=== PATIENT | female | born 1990 | race Caucasian/White ===

== ENCOUNTER → 2019-03-21 | Outpatient (CLI) | payer OTHER, SELFPAY ==
[2019-03-21 13:33] VITALS: BMI 35.0
[2019-03-21 15:14] LABS: Absolute Lymphocyte Count 1.85 X10^3/ul (0.83-4.51); Absolute Neutrophil Count 5.7 X10^3/uL (2.0-7.7); Basophil# 0.03 X10^3/uL; Basophil% 0.4 % (0-1); Eosinophil# 0.13 X10^3/uL; Eosinophils% 1.5 % (0-5); Hematocrit 38.6 % (37-47); Hemoglobin 12.9 g/dl (12.0-15.0); Lymphocyte # 1.85 X10^3/ul (4.0); Lymphocyte % 21.9 % (19-41); Mean Corp Hgb Conc 33.4 g/gl (32-36); Mean Corpuscular Volume 92.8 fL (81-99); Mean Platelet Vol. 10.1 fl (6.2-12.0); Monocyte# 0.58 X10^3/uL; Monocyte% 6.9 % (0-10); Neutrophil # 5.71 X10^3/uL (2.7-7.7); Neutrophil % 67.6 % (47-70); Platelet Count 162 K/mm3 (150-450); RBC Distribution Width CV 13.3 % (11.6-14.6); Red Blood Count 4.16 M/mm3 (4.2-5.4); White Blood Count 8.4 K/mm3 (4.4-11.0)
[2019-03-21 15:19] LABS: POSITIVE COUNT NO; POSITIVE DIFFERENTIAL NO; POSITIVE MORPHOLOGY NO
[2019-03-21 15:30] LABS: Glucose Challenge Gest 1H 50g 93 mg/dL (70-140)
[2019-03-21 16:22] LABS: HIV - WCH Non-Reactive (Nonreactive); Rubella IgG 67.7 IU/mL
[2019-03-21 19:27] LABS: Chlamydia Trachomatis by PCR Negative (Negative); Neisserai gonorrhoeae by PCR Negative (Negative); Probe Check PASS; Sample Adequacy Control PASS; Specimen Processing Control PASS
[2019-03-23 15:28] LABS: HEPATITIS B SURFACE AG Negative (Negative)
[2019-03-24 03:40] LABS: Rapid Plasmin Reagin (RPR) NONREACTIVE (NONREACTIVE)
[2019-03-24 13:57] LABS: HPV APTIMA, High Risk Negative (Negative)
== END | disposition home or self-care (01) ==
PROVIDERS: Visit Provider Obstetrics & Gynecology
DX: Z34.90 Encounter for supervision of normal pregnancy, unspecified, unspecified trimester (principal); Z12.4 Encounter for screening for malignant neoplasm of cervix
CPT/HCPCS: 82950; 85025; 86592; 86703; 86762; 86850; 86900; 87086; 87340; 87491; 87591; 87624; 88175; G0145

== ENCOUNTER → 2019-07-21 08:43 | Outpatient (CLI) | payer OTHER, SELFPAY ==
[2019-07-21 08:24] VITALS: BMI 35.0
[2019-07-21 09:48] LABS: Absolute Lymphocyte Count 1.38 X10^3/uL (0.83-4.51); Absolute Neutrophil Count 4.7 X10^3/uL (2.0-7.7); Basophil# 0.05 X10^3/uL; Basophil% 0.7 % (0-1); Eosinophil# 0.11 X10^3/uL; Eosinophils% 1.6 % (0-5); Hematocrit 34.6 % (37-47); Hemoglobin 11.6 g/dL (12.0-15.0); Lymphocyte # 1.38 X10^3/ul (4.0); Lymphocyte % 19.8 % (19-41); Mean Corp Hgb Conc 33.5 g/dL (32-36); Mean Corpuscular Hgb 33.1 pg (27.0-32.0); Mean Corpuscular Volume 98.9 fL (81-99); Mean Platelet Vol. 10.4 fl (6.2-12.0); Monocyte# 0.48 X10^3/uL; Monocyte% 6.9 % (0-10); NRBC Flagged by Analyzer 0 % (0-5); Neutrophil # 4.69 X10^3/uL (2.7-7.7); Neutrophil % 67.3 % (47-70); Platelet Count 131 K/mm3 (150-450); RBC Distribution Width CV 13.2 % (11.6-14.6); RBC Distribution Width SD 47.4 fl (35.1-43.9)
[2019-07-21 09:59] LABS: Glucose Challenge Gest 1H 50g 82 mg/dL (70-140)
== END ==
LOC: PAVLAB 08:51
PROVIDERS: Family Provider Family Medicine; PCP Family Medicine; Referring Provider Obstetrics & Gynecology; Visit Provider Obstetrics & Gynecology
DX: Z34.90 Encounter for supervision of normal pregnancy, unspecified, unspecified trimester (principal); Z3A.26 26 weeks gestation of pregnancy
CPT/HCPCS: 36415; 82950; 85025

== ENCOUNTER → 2019-09-27 10:00 | Outpatient (CLI) | payer BC, SELFPAY ==
[2019-09-27 09:07] VITALS: BMI 35.0
== END ==
PROVIDERS: Family Provider Family Medicine; PCP Family Medicine; Referring Provider Nurse Practitioner Women's Health; Visit Provider Nurse Practitioner Women's Health
DX: Z34.81 Encounter for supervision of other normal pregnancy, first trimester (principal)
CPT/HCPCS: 87081

== ENCOUNTER → 2019-10-04 09:25 | Outpatient (CLI) | payer BC, SELFPAY ==
[2019-10-04 08:46] VITALS: BMI 35.0
[2019-10-04 09:43] LABS: Absolute Neutrophil Count 7.6 X10^3/uL (2.0-7.7); Basophil# 0.12 X10^3/uL; Basophil% 1.1 % (0-1); Eosinophil# 0.15 X10^3/uL; Eosinophils% 1.4 % (0-5); Hematocrit 36.2 % (37-47); Hemoglobin 12.1 g/dL (12.0-15.0); Lymphocyte % 15.7 % (19-41); Mean Corp Hgb Conc 33.4 g/dL (32-36); Mean Corpuscular Hgb 32.6 pg (27.0-32.0); Mean Corpuscular Volume 97.6 fL (81-99); Mean Platelet Vol. 10.8 fl (6.2-12.0); Monocyte# 0.82 X10^3/uL; Monocyte% 7.6 % (0-10); NRBC Flagged by Analyzer 0 % (0-5); Neutrophil # 7.56 X10^3/uL (2.7-7.7); Neutrophil % 69.7 % (47-70); Platelet Count 136 K/mm3 (150-450); RBC Distribution Width CV 13.4 % (11.6-14.6); RBC Distribution Width SD 47.8 fl (35.1-43.9); Red Blood Count 3.71 M/mm3 (4.2-5.4); White Blood Count 10.8 K/mm3 (4.4-11.0)
== END ==
PROVIDERS: Referring Provider Obstetrics & Gynecology; Visit Provider Obstetrics & Gynecology
DX: O99.119 Other diseases of the blood and blood-forming organs and certain disorders involving the immune mechanism complicating pregnancy, unspecified trimester (principal); D69.6 Thrombocytopenia, unspecified; Z3A.00 Weeks of gestation of pregnancy not specified
CPT/HCPCS: 36415; 85025

== ENCOUNTER 2019-10-21 01:22 | Inpatient (IN) | payer BC, SELFPAY ==
[2019-10-19 08:43] VITALS: BMI 35.0
[2019-10-21] MEDS: Lactated Ringers 1,000 ML 50 ML IV (01:35)
[2019-10-21 01:43] VITALS: BMI 37.5
[2019-10-21 01:53] LABS: Absolute Lymphocyte Count 1.81 X10^3/uL (0.83-4.51); Basophil# 0.06 X10^3/uL; Basophil% 0.5 % (0-1); Eosinophil# 0.16 X10^3/uL; Eosinophils% 1.4 % (0-5); Hematocrit 34.2 % (37-47); Hemoglobin 11.9 g/dL (12.0-15.0); Lymphocyte # 1.81 X10^3/ul (4.0); Lymphocyte % 15.9 % (19-41); Mean Corp Hgb Conc 34.8 g/dL (32-36); Mean Corpuscular Hgb 33.1 pg (27.0-32.0); Mean Corpuscular Volume 95.3 fL (81-99); Mean Platelet Vol. 11.2 fl (6.2-12.0); Monocyte# 0.95 X10^3/uL; Monocyte% 8.3 % (0-10); NRBC Flagged by Analyzer 0 % (0-5); Neutrophil # 8.01 X10^3/uL (2.7-7.7); Neutrophil % 70.4 % (47-70); Platelet Count 113 K/mm3 (150-450); RBC Distribution Width CV 13.2 % (11.6-14.6); RBC Distribution Width SD 46.3 fl (35.1-43.9); Red Blood Count 3.59 M/mm3 (4.2-5.4); White Blood Count 11.4 K/mm3 (4.4-11.0)
[2019-10-21] MEDS: 0.9% Saline Lock 10 ML Syringe IV ×2 (02:10→04:47)
[2019-10-21] MEDS: Ondansetron 4 MG/2 ML Vial IV (02:10)
[2019-10-21] MEDS: Oxytocin 30 units/NS 500 ml 30 UNITS/500 ML IV.SOLN 999 UNITS IV (02:22)
--- NOTE | 2019-10-21 03:16 | PCM.HP.OB ---
- Problem List (1) Active labor at term Status: Acute (2) Thrombocytopenia affecting Status: Acute (3) Anxiety Status: Acute Comment: declines med. counseling encouraged. lost father(cancer 04/2019) this and 2 of his brothers 09/2018 and now 09/2019. Will now start celexa 09/27/19 (4) Obesity affecting Status: Acute Qualifiers: Trimester: second trimester Qualified Code(s): O99.212 - Obesity complicating , second trimester Comment: 1 tm glucola nl, encouraged healthy weight gain in (5) History of delivery Status: Acute Comment: previous x 1, plan (6) Status: Acute Qualifiers: Weeks of gestation: 39 weeks Qualified Code(s): Z3A.39 - 39 weeks gestation of Comment: genetic, carrier, and NTD screening declined. MFM Anatomy US normal. (7) Supervision of normal Status: Acute Qualifiers: Normal : other normal Trimester: first trimester Qualified Code(s): Z34.81 - Encounter for supervision of other normal , first trimester Comment: PRR DWIGHT 10/21/19 gender surprise Liane Germain Bebeto History Date of Admission: 10/21/19 Final DWIGHT: 10/21/19 Gestational age: 40 Weeks and 0 Days History of this : This is a 29 year-old, , at 40 weeks gestational age presents at 40 weeks with regular contractions and spontaneous rupture membranes for clear fluid. Patient is 8 cm dilated and denies any significant vaginal bleeding and admits good movement.. Surgical History: Surgical History (Last Reviewed 10/19/19 @ 08:43 by Shantelle Hamilton) delivery delivered O82 Allergies No Known Allergies Allergy (Verified 10/21/19 01:45) Home Medications: Home Medications loratadine 10 mg tablet 10 mg PO DAILY 03/21/19 vitamin#30 30 mg iron-10 mg iron-folic acid 1 mg-omg3 capsule 1 cap PO DAILY cap 03/21/19 Smoking Status: Former smoker Alcohol: None Number of Fetus(es): 1 NST - FHR Rate Baby A Baseline: 130 Variability:: Moderate Accelerations:: 15 x 15 Decelerations:: None NST Reactive:: Yes FHR Category:: Category I Uterine Activity:: q 2-3 History Past Pregnancies: Past PregnanciesPregancy History 3 Elective abortions Hx Para 2 Spontaneous abortions Hx # Term Pregnancies Ectopic pregnancies Hx # Pregnancies Multiple births # of living children Past Pregnancies Del. Date Name GA/Weeks Outcome Route Bth Weight Infant Gen Labor Lgth Anesthesia Del Locatn Provider FOB Unknown 2006 [place] live - full term [id number] Female [place] Unknown 2011 [place] live - full term 8 lb 11 ounces Male Mason Bond Labs: Mom's Labs & Results 10/21/19 10/21/19 01:35 01:35 WBC 11.4 H RBC 3.59 L Hgb 11.9 L Hct 34.2 L MCV 95.3 MCH 33.1 H MCHC 34.8 RDW Std Deviation 46.3 H RDW Coeff of Michelle 13.2 Plt Count 113 L MPV 11.2 Immature Gran % (Auto) 3.500 H Neut % (Auto) 70.4 H Lymph % (Auto) 15.9 L [place] % (Auto) 8.3 Eos % (Auto) 1.4 Baso % (Auto) 0.5 Absolute Neuts (auto) 8.0 H Absolute Lymphs (auto) 1.81 Nucleated RBC % 0 Blood Type O POSITIVE Antibody Screen NEGATIVE Course Did the patient receive Yes care? Labs Blood Type: O RH: POSITIVE Rubella status Immune HbSAg Negative Date Done: 03/21/19 Chlamydia Negative Gonorrhea Negative HIV/AIDS Non-Reactive Group B Strep: Negative Current Obstetrical History Gestational Diabetes No Incompetent Cervix No Infertility No IUGR No Macrosomia No Hypertension/Pre-eclampsia No Placenta Previa/Abruption No PTL/PROM No Uterine anomaly No Oligohydramnios No Polyhydramnios No Multiple gestation No Past Medical History Asthma No Diabetes No Hypertension No Heart disease No Mitral valve prolapse No Neurologic/Seizure disorder/ No Migraines Kidney disease No Liver disease No Varicosities No Clotting disorders/Hx of DVT No Thyroid Dysfunction No Other medical diseases No Psychiatric disorders No Major trauma No Abnormal PAP smear No Sleep apnea No Mammogram in the last 2 years No Social History Marital Status: SINGLE Alleged father TAMMIE Hx Smoking Yes Smoking Status Former smoker How long have you used n/a substances (years)? Expected Infant Delivery Method: Spontaneous Vaginal Review of Systems Constitutional: Denies: Fever, Malaise Eyes: Denies: Blurred vision, Vision Change HEENT: Denies: Head Aches, Visual Changes Cardiovascular: Denies: Chest Pain, Palpitations Respiratory: Denies: Cough, Shortness of Breath, Wheezing Gastrointestinal: Denies: Abdominal Pain, Diarrhea, Nausea, Vomiting Genitourinary: Denies: Dysuria, Hematuria Musculoskeletal: Denies: Joint Pain, Muscle pain Skin: Denies: Lesions, Rash Neurological: Denies: Blurred vision, Focal weakness, Headaches Psychiatric: Denies: Anxiety, Depression Endocrine: Denies: Heat/ Cold Intolerance Hematologic/ Lymphatic: Denies: Easy Bruising, Easy Bleeding Physical Exam General: Alert, Cooperative, No apparent distress HEENT: Atraumatic, Normocephalic. Negative for: Thyromegaly, Lymphadenopathy Cardiovascular: Regular rate Lungs: Normal air movement Abdomen: Soft, Non Tender, Gravid Neurological: Deep Tendon Reflexes 2+/4 and Symmetrical, Neuro grossly intact. Negative for: Clonus HOOP EXPANDER: Normal external genitalia. Negative for: Vulvar lesions Estimated gestational size: Appropriate for gestational size Presentation: Cephalic Cervix Dilation (cm): 8 Assessment/Plan All Active Problems (Last Reviewed 10/19/19 @ 08:43 by Shantelle Hamilton) Active labor at term (Acute) Thrombocytopenia affecting (Acute) Anxiety (Acute) Obesity affecting (Acute) History of delivery (Acute) (Acute) Supervision of normal (Acute) This is a 29 year-old, , at 40 weeks gestational age presents for TOLAC prefers minimal intervention gbs neg TOLAC
--- NOTE | 2019-10-21 03:26 | PCM.OPRPT ---
Problem List (1) Active labor at term Status: Acute (2) Thrombocytopenia affecting Status: Acute (3) Anxiety Status: Acute Comment: declines med. counseling encouraged. lost father(cancer 04/2019) this and 2 of his brothers 09/2018 and now 09/2019. Will now start celexa 09/27/19 (4) Obesity affecting Status: Acute Qualifiers: Trimester: second trimester Qualified Code(s): O99.212 - Obesity complicating , second trimester Comment: 1 tm glucola nl, encouraged healthy weight gain in (5) History of delivery Status: Acute Comment: previous x 1, plan (6) Status: Acute Qualifiers: Weeks of gestation: 39 weeks Qualified Code(s): Z3A.39 - 39 weeks gestation of Comment: genetic, carrier, and NTD screening declined. MFM Anatomy US normal. (7) Supervision of normal Status: Acute Qualifiers: Normal : other normal Trimester: first trimester Qualified Code(s): Z34.81 - Encounter for supervision of other normal , first trimester Comment: PRR DWIGHT 10/21/19 gender surprise Liane Germain Bebeto Vaginal Delivery Maternal Presentation: Active Labor tolac Amniotic Membrane Rupture Type: Spontaneous at home Amniotic Fluid Description: Clear Final DWIGHT: 10/21/19 Gestational age: 40 Weeks and 0 Days Date of Procedure: 10/21/19 Pre-Operative Diagnosis: tolac Post-Operative Diagnosis: same Surgery/ Procedure Performed: Spontaneous Vaginal Delivery, - - Type of Anesthesia: None Description of Procedure: Patient began pushing and delivered the head in the YOUNG presentation. The head was delivered atraumatically . The anterior and posterior shoulders delivered without complication followed by the rest of the infant and the infant was placed on the maternal abdomen. Delayed cord clamping was employed for approximately 60 seconds. Cord was clamped and cut and gentle traction was applied to the cord and the placenta delivered spontaneously immediately following it was noted to be intact with three-vessel cord. The perineum and vagina were inspected and noted to have no laceration. EBL was 300 cc. Patient and infant tolerated delivery well. Presentation: YOUNG Placental Delivery Description: Spontaneous Placenta Disposition: [facility] Cord Vessel Description: 3 Vessels Cord Entanglement: None Estimated Blood Loss: 300 A gender: Male Episiotomy Description: None Laceration: None Medications given after delivery: IV Pitocin Complications: None
--- NOTE | 2019-10-21 03:40 | DCINST_ITS ---
Discharge Diet: No Restrictions Discharge Activity: Return to Normal Activity, May not drive while taking narcotic pain medications., May Shower May resume sexual activity in: 4-6 weeks Call your doctor if your incision/area has: Continuous Slow Oozing, Sudden Increased Bleeding, Increased Pain/ Swelling, Increased Redness, Foul Smelling Discharge Additional Instructions: If you experience any of the following, contact your healthcare provider. * Bleeding that soaks a pad every hour for 2 hours * Fever 100.4 or higher * Unrelieved incision or abdominal pain * Swelling, redness, discharge or bleeding from your incision or episiotomy site * Your incision begins to separate * Problems urinating (including inability to urinate or burning while urinating). * Visual changes * Severe headache * Flu-like symptoms * Pain or redness in one of both of your breasts * Pain, warmth, tenderness or swelling in your legs, especially the calf area * Frequent nausea and vomiting * Symptoms of depression or anxiety If you experience any of the following, call 911 or go to the nearest Emergency Room. * Chest pain * Problems breathing * Seizure activity * Partial or complete paralysis of a body part, slurred speech, weakness or drooping of the face, or a sudden inability to walk or hold your balance Allergies/Adverse Reactions: Allergies No Known Allergies Allergy (Verified 10/21/19 01:45) Medications to take at Discharge loratadine 10 mg tablet 10 mg PO DAILY 03/21/19 vitamin#30 30 mg iron-10 mg iron-folic acid 1 mg-omg3 capsule 1 cap PO DAILY cap 03/21/19 Please Follow Up With: Dipika Johnson MD - [phone] When: Call to make an appointment with your doctor in 6 weeks. If you had elevated Blood pressure or 4th degree laceration you will need to be seen in 2 weeks. Primary Care Physician: Care Physician,No Primary [Primary Care Provider] - Test Results: Test results from this visit will be discussed in further detail at your follow- up appointment, if applicable.
--- NOTE | 2019-10-21 03:40 | PCM.DCVAG ---
Discharge Diet: No Restrictions Discharge Activity: Return to Normal Activity, May not drive while taking narcotic pain medications., May Shower May resume sexual activity in: 4-6 weeks Call your doctor if your incision/area has: Continuous Slow Oozing, Sudden Increased Bleeding, Increased Pain/ Swelling, Increased Redness, Foul Smelling Discharge Additional Instructions: If you experience any of the following, contact your healthcare provider. Bleeding that soaks a pad every hour for 2 hours Fever 100.4 or higher Unrelieved incision or abdominal pain Swelling, redness, discharge or bleeding from your incision or episiotomy site Your incision begins to separate Problems urinating (including inability to urinate or burning while urinating). Visual changes Severe headache Flu-like symptoms Pain or redness in one of both of your breasts Pain, warmth, tenderness or swelling in your legs, especially the calf area Frequent nausea and vomiting Symptoms of depression or anxiety If you experience any of the following, call 911 or go to the nearest Emergency Room. Chest pain Problems breathing Seizure activity Partial or complete paralysis of a body part, slurred speech, weakness or drooping of the face, or a sudden inability to walk or hold your balance Allergies/Adverse Reactions: Allergies No Known Allergies Allergy (Verified 10/21/19 01:45) Medications to take at Discharge loratadine 10 mg tablet 10 mg PO DAILY 03/21/19 vitamin#30 30 mg iron-10 mg iron-folic acid 1 mg-omg3 capsule 1 cap PO DAILY cap 03/21/19 Please Follow Up With: Dipika Johnson MD - [phone] When: Call to make an appointment with your doctor in 6 weeks. If you had elevated Blood pressure or 4th degree laceration you will need to be seen in 2 weeks. Primary Care Physician: Care Physician,No Primary [Primary Care Provider] - Test Results: Test results from this visit will be discussed in further detail at your follow-up appointment, if applicable.
[2019-10-21 04:23] VITALS: BP 126/80; PULSE 74; RESP 16; TEMP 36.6
[2019-10-21 08:30] VITALS: BP 119/63; PULSE 74; RESP 15; TEMP 36.8
[2019-10-21 13:15] VITALS: BP 132/62; PULSE 85; RESP 16; TEMP 36.9
[2019-10-21] MEDS: Loratadine 10 MG Tablet PO (13:19)
[2019-10-21] MEDS: Prenatal Vits Tablet 1 TABLET PO (13:20)
[2019-10-21 17:20] VITALS: BP 114/58; PULSE 70; RESP 16; TEMP 36.6
[2019-10-21 19:40] VITALS: BP 131/72; PULSE 71; RESP 16; TEMP 36.8
[2019-10-21 23:55] VITALS: BP 110/70; PULSE 74; RESP 18; TEMP 36.7
[2019-10-22 06:00] VITALS: BP 118/61; PULSE 77; RESP 16; TEMP 36.6
[2019-10-22 08:00] VITALS: BP 117/55; PULSE 62; RESP 18; TEMP 36.8
[2019-10-22] MEDS: Loratadine 10 MG Tablet PO (09:46)
--- NOTE | 2019-10-22 12:01 | PN.OBGYN_ITS ---
Subjective: doing well no complaints pain controlled no CP SOB N V ambulating well tolerating po lochia moderate, going well - Physical Exam Vitals/I&O's: Vital Signs Temp Pulse Resp BP 98.2 F 62 18 117/55 L 10/22/19 08:00 10/22/19 08:00 10/22/19 08:00 10/22/19 08:00 Oxygen Delivery Method Room Air Weight: 254 lb Body Mass Index (BMI) 37.5 Intake and Output for Last 24 Hours 10/20/19 10/21/19 10/22/19 23:59 23:59 23:59 Intake Total 775.00 / 775.00 Output Total 500 / 500 Balance 275.00 / 275.00 General: Alert, Oriented x3 Current Medications Acetaminophen (Tylenol) 1,000 mg PO Q8H PRN PRN PRN Reason: Pain Score 1-3/10 Bisacodyl (Dulcolax) 10 mg RECTAL UD PRN PRN Reason: If no BM Dibucaine (Dibucaine) 1 applic TOPICAL TID PRN PRN; Protocol PRN Reason: Discomfort Hydrocortisone (Hytone) 1 applic TOPICAL TID PRN PRN; Protocol PRN Reason: Discomfort Loratadine (Claritin) 10 mg PO DAILY [facility] Last Admin: 10/22/19 09:46 Dose: 10 mg Documented by: Methylergonovine Maleate (Methergine) 0.2 mg IM X1 PRN PRN Reason: Excess bleeding/uterine atony Naproxen (Naprosyn) 500 mg PO Q8H PRN PRN PRN Reason: Pain Score 1-3/10 Ondansetron HCl (Zofran) 4 mg IV Q4H PRN PRN PRN Reason: Nausea Oxycodone HCl (Oxyir) 5 - 10 mg PO Q4H PRN PRN PRN Reason: Pain Score 4-10/10 Multivit/Folic Acid/Iron (Prenatabs Fa) 1 tablet PO DAILY@1200 [facility] Last Admin: 10/21/19 13:20 Dose: 1 tablet Documented by: Senna/Docusate Sodium (Senokot-S, Leonor-Colace) 1 - 2 tablet PO DAILY PRN PRN PRN Reason: Constipation Simethicone (Mylicon) 80 mg PO P[facility]S PRN PRN Reason: Indigestion/Stomach pain Sodium Chloride () 5 - 15 ml IV UD PRN PRN Reason: SALINE FLUSH Last Admin: 10/21/19 04:47 Dose: 10 ml Documented by: Medical Necessity - Tobacco Use Smoking Status: Former smoker Assessment/Plan All Active Problems (Last Reviewed 10/19/19 @ 08:43 by Shantelle Hamilton) Contraception management (Acute) Anxiety (Acute) Active labor at term (Resolved) History of delivery (Resolved) Obesity affecting (Resolved) (Resolved) Supervision of normal (Resolved) Thrombocytopenia affecting (Resolved) s/p PPD # 1 1. routine post delivery care 2. breast feeding- support given 3. rh positive 4. rubella immune
[2019-10-22 12:48] VITALS: BP 119/68; PULSE 72; RESP 16; TEMP 36.4
== END 2019-10-22 13:10 | disposition home or self-care (01) | DRG 806 ==
PROVIDERS: Admitting Provider Obstetrics & Gynecology; Referring Provider Obstetrics & Gynecology; Visit Provider Obstetrics & Gynecology
DX: O34.219 Maternal care for unspecified type scar from previous cesarean delivery (principal); O99.12 Other diseases of the blood and blood-forming organs and certain disorders involving the immune mechanism complicating childbirth; D69.6 Thrombocytopenia, unspecified; O99.214 Obesity complicating childbirth; E66.9 Obesity, unspecified; Z87.891 Personal history of nicotine dependence; Z3A.40 40 weeks gestation of pregnancy; Z37.0 Single live birth
CPT/HCPCS: 59025; 59050; 85025; 86850; 86900; 86901; 99218; J7120; A4216; G0378; J2405

== ENCOUNTER → 2020-01-16 14:18 | Outpatient (CLI) | payer BC, SELFPAY ==
[2020-01-15 10:54] VITALS: BMI 37.5
--- NOTE | 2020-01-16 14:19 | US_ITS ---
STUDY: ULTRASOUND BREAST - RIGHT REASON FOR EXAM: Female, 29 years old. Palpable lump in the right breast. TECHNIQUE: Axial and longitudinal images of the RIGHT breast were performed with a high resolution ultrasound transducer. # OF IMAGES: 8 COMPARISON: Comparison is made with prior mammogram done earlier today. FINDINGS: RIGHT Breast: There is a 5 mm x 4 mm x 4 mm slightly echogenic nodule at the 4:00 position in the breast at 6 cm from nipple. This most likely represents a small lipoma. US/Breast Limited Unilateral IMPRESSION: 5 mm x 4 mm x 4 mm echogenic nodule at the 4:00 position of the breast at 6 cm from the nipple. This most likely represents a lipoma. Routine annual mammographic follow-up is recommended. ASSESSMENT CATEGORY: BIRADS Category 2: Benign. A letter regarding these results will be sent to the patient by the facility within 30 days. Electronically Signed: Rocky Brandon, at 9:08 EST , Service support ,
--- NOTE | 2020-01-16 14:19 | BI_ITS ---
MAMMOGRAPHY - BILATERAL DIAGNOSTIC REASON FOR EXAM: Female, 29 years old. Right breast lump. Patient quit breast-feeding one month ago. PERTINENT HISTORY: Non-contributory. TECHNIQUE: Digital bilateral breast alexa (3D mammographic acquisition) in the CC and MLO projections. 2-D mediolateral oblique (MLO) and craniocaudad (CC) views of both breasts were obtained. CAD: Full Field Digital Mammography with Computer Added Detection was performed. COMPARISON: None. Baseline examination. FINDINGS: Breast Composition: The breasts are heterogeneously dense, which may obscure small masses. There are no dominant masses or suspicious calcifications. No other significant abnormalities are identified. BI/DIAG MAMM W/CAD, BILAT IMPRESSION: Negative diagnostic mammogram. With the patient''s history of a palpable lump in the right breast, correlation with ultrasound is recommended. ASSESSMENT CATEGORY: BIRADS Category 0: Incomplete. Need additional imaging evaluation. A letter regarding these results will be sent to the patient by the facility within 30 days. Approximately 10% of breast cancers are not detected by mammography. A normal mammogram should not delay biopsy of a clinically suspicious abnormality. Electronically Signed: Rocky Brandon, at 15:21 EST , Service support ,
== END ==
LOC: OPBI 14:19
PROVIDERS: Referring Provider Obstetrics & Gynecology; Visit Provider Obstetrics & Gynecology
DX: N63.14 Unspecified lump in the right breast, lower inner quadrant (principal)
CPT/HCPCS: 76642; 77062; 77066; G0279

== ENCOUNTER → 2020-05-21 | Outpatient (CLI) | payer BC, SELFPAY ==
[2020-01-15 10:54] VITALS: BMI 37.5
== END | disposition home or self-care (01) ==
LOC: LABSPEC 05-22 07:37
PROVIDERS: Visit Provider Family Medicine Hospice and Palliative Medicine
DX: Z11.59 Encounter for screening for other viral diseases (principal)
CPT/HCPCS: 87635; G2023; U0003

== ENCOUNTER → 2025-08-20 | Outpatient (CLI) | payer OTHER, SELFPAY ==
[2025-08-23 16:09] LABS: HPV APTIMA, High Risk Negative (Negative)
== END | disposition home or self-care (01) ==
LOC: LABSPEC 16:02
PROVIDERS: Referring Provider Nurse Practitioner Family; Visit Provider Nurse Practitioner Family
DX: Z12.4 Encounter for screening for malignant neoplasm of cervix (principal)
CPT/HCPCS: 87624; 88175; G0145

== ENCOUNTER → 2025-08-31 | Outpatient (CLI) | payer OTHER, SELFPAY ==
--- NOTE | 2025-08-31 15:00 | BI_ITS ---
EXAM: SCRN MAMM (CAD)W/NIKKI BILAT DATE: 08/31/2025 CLINICAL HISTORY: F, Age 35 y/o , SCREENING; PREVIOUS LIPOMA TECHNIQUE: Procedure Code: [id number] Modality: MG Procedure: SCRN MAMM (CAD)W/NIKKI BILAT COMPARISON: Prior exam(s) dated 01/16/2020. FINDINGS: TISSUE DENSITY: There are scattered areas of fibroglandular density. Bilateral Breast Mammographic Findings: No significant masses, calcifications or other abnormalities are identified. Benign-appearing round calcifications are seen in both breasts. BI/SCRN MAMM (CAD)W/NIKKI BILAT IMPRESSION: Benign screening mammogram. OVERALL FINAL ASSESSMENT BI-RADS 2: BENIGN RECOMMENDATION: Routine annual follow-up in 1 Year Additional Recommendation none A letter with findings and recommendations will be mailed to the patient. Reading Location: [id number]
--- OUTSIDE RECORDS SUMMARY | 2025-08-31 15:18 | XMS RPT_ITS | CCD ---
Author Organization [facility] Inform ion Partnership TOUR AGENT [facility] Care Team Providers Care Windows Vmware Administrator Name Role Phone Unavailable Primary Care Provider Unavailabl e Care Physician, No Primary Primary Care Physicia n Unavailable Care Physician, No Primary Referring Provider Un available Lianna LABOR CONTRACT ANALYST-C, Renea Attending Physician [phone] Lianna LABOR CONTRACT ANALYST-CRenea Referring Provider [phone] Care Physician, No Primary Primary Care Unava ilable Care Physician, No Primary Referring Unava ilable Renea Dsouza Attending Unavailable Care Physician, No Primary Primary Care Unava ilable Renea Dsouza Attending Unavailable Renea Dsouza Referring Unavailable Care Physician, No Primary Primary Care Unava ilable Renea Dsouza Attending Unavailable Renea Dsouza Referring Unavailable Allergies Allergy Classification Reported Allergen(s) Allergy Type Date of Onset Reaction(s) Facility (1 source) Seasonal allergy; Translations: [SEASONAL ALLERGIES] Propensity to adverse reactions (disorder) 2 [facility] Repository (2 sources) Adhesive Tape; Translations: [adhesive tape] Propensity to adverse reactions 5 [facility] Medications Current Medications Medication Drug Class(es) Dates Sig (Normalized) Sig (Original) cholecalciferol 0.05 mg oral capsule (1 source) Vitamin D Start: 12-24-2020 take 1 capsule by mouth once daily erythromycin 0.005 mg/mg ophthalmic ointment (1 source) Macrolide, Macrolide Antimicrobial Start: 05-23-2023 End: 05-30-2023 erythromycin (ROMYCIN) 5 mg/gram (0.5 %) ophthalmic ointment Use 1 application in the left eye three times daily for 7 days. 1 g 0 05/23/2023 05/30/2023 Active Comment on above: Use 1 application in the left eye three times daily for 7 days. levonorgestrel 0.060955 mg/hr intrauterine system (2 sources) Progestin, Progestin-containin g Intrauterine Device Start: 01-08-2020 Mirena active En counter Date: 04/28/2024 MedicationName: 'Mirena'; ConceptType: 'NDC'; Status: 'Taking'; Not Available Not Available Not Available Pnv [id number]-Dbqmi Acid-Sutton -3 30 mg iron-10 mg iron-1 mg capsule (1 source) Start: 03-21-2019 Zinc (1 source) Start: 12-24-2020 take 1 tablet by seun th once daily Completed/Discontinued Medications Medication Drug Class(es) Dates Sig (Normalized) Sig (Original) loratadine 10 mg oral tablet (3 sources) Start: 03-21-2019 loratadine (CLARITIN) 10 mg tablet Take 10 mg by mouth. 0 03/21/2019 Active take 1 tablet by mouth once karen y Claritin 1 tablet Once a day , Orally active Encounter Date: 04/28/2024 MedicationID: '[id number]'; MedicationName: 'Claritin'; ConceptType: 'NDC'; Status: 'Taking'; Not Available Not Available Not Available Comment on above: Take 10 mg by mouth. Problems Active Problems Problem Classification Problem Date Documented Date Episodic/Chronic Anxiety disorders (1 source) Anxiety; Translations: [Anxiety disorder, unspecified] 09-27-2019 Chronic Comment on above: declines med. counse shereen encouraged. lost father(cancer 04/2019) this and 2 of his brothers 09/2018 and now 09/2019. Will now start celexa 09/27/19 Contraceptive and procreative management (4 sources) Patient encounter status; Translations: [Encounter for contraceptive management, unspecified] Onset: 08-20-2025 11-30-2019 Episodic Comment on above: cordell 11/30/19 Other complications of (1 source) Maternal obesity complicating , childbirth and the puerperium, antepartum; Translations: [Obesity complicating , unspecified trimester] 10-23-2019 Chronic Comment on above: 1 tm glucola nl, enc ouraged healthy weight gain in Other complications of (1 source) Thrombocytopenic disorder; Translations: [Other diseases of the blood and blood-forming organs and certain disorders involving the immune mechanism complicating , unspecified trimester] 10-23-2019 Episodic Other and delivery including normal (3 sources) Normal ; Translations: [Encounter for supervision of normal , unspecified, unspecified trimester] 10-23-2019 Episodic Comment on above: PRR DWIGHT 10/21/19 gender surprise PC Liane Riggs Bebeto velasquez, carrier, an d NTD screening declined. MFM Anatomy US normal. Other screening for suspected conditions (not mental disorders or infectious disease) (5 sources) Encounter for screening mammogram for malignant neoplasm of breast; Translations: [Encounter for other screening for malignant neoplasm of breast] Onset: 08-20-2025 Episodic Superficial injury; contusion (1 source) Abrasion of left cornea; Translations: [Injury of conjunctiva and corneal abrasion without foreign body, left eye, initial encounter] 05-23-2023 Episodic Past or Other Problems Problem Classification Problem Date Documented Date Episodic/Chronic Immunizations and screening for infectious disease (1 source) HIV screening; Translations: [Encounter for screening for human immunodeficiency virus [HIV]] Onset: 04-06-2025 Resolved: 04-06-2025 Episodic Results Test Name Value Interpretation Reference Range Facility PAP IG HPV APTIMA 16/18,45on 08-23-2025 ADEQ Comment Normal . [facility] Comment on above: Order Comment: Speci men Comment: [id number] Specimen Comment: No. of containers..01 ThinPrep Vial Result Comment: Sati sfactory for evaluation. Endocervical and/or squamous metaplastic cells (endocervical component) are present. Performed By: #### L 7400.0280 #### [facility] [address] [place], [place], [id number] COMM . Normal . [facility] Comment on above: Order Comment: Speci men Comment: [id number] Specimen Comment: No. of containers..01 ThinPrep Vial Performed By: #### L 7400.0280 #### [facility] [address] [place], [place], [id number] COMMENT Comment Normal . [facility] Comment on above: Order Comment: Speci men Comment: [id number] Specimen Comment: No. of containers..01 ThinPrep Vial Result Comment: This liquid based ThinPrep(R) pap test was interpreted using the [employer](R) Genius(TM) Cervical Algorithm whole slide imaging system. Performed By: #### L 7400.0280 #### [facility] [address] [place], [place], [id number] DIAG Comment Normal . [facility] Comment on above: Order Comment: Speci men Comment: [id number] Specimen Comment: No. of containers..01 ThinPrep Vial Result Comment: NEGA TIVE FOR INTRAEPITHELIAL LESION OR MALIGNANCY. PREDOMINANCE OF COCCOBACILLI CONSISTENT WITH SHIFT IN VAGINAL SALUD IS PRESENT. Performed By: #### L 7400.0280 #### [facility] [address] [place], [place], [id number] HPV APTIMA, HR Negative Normal Negative [facility] Comment on above: Order Comment: Speci men Comment: [id number] Specimen Comment: No. of containers..01 ThinPrep Vial Result Comment: This nucleic acid amplification test detects fourteen high- risk HPV types (16,18,31,33,35,39,45,51,52,56,58,59,66,68) without differentiation. Performed By: #### L 7400.0280 #### [facility] [address] [place], [place], [address] HPV Marium Rfx Comment Normal . [facility] Comment on above: Order Comment: Speci men Comment: [id number] Specimen Comment: No. of containers..01 ThinPrep Vial Result Comment: Crit eria not met, HPV Genotype not performed. Performed at: [address] [id number] Residential Sales Representative: Jessi Franco MD, Phone: [phone] Performed at: =[address] [id number] Residential Sales Representative: Jessi Franco MD, Phone: [phone] Performed By: #### L 7400.0280 #### [facility] [address] [place], [place], [id number] PAPSMR Comment Normal . [facility] Comment on above: Order Comment: Speci men Comment: [id number] Specimen Comment: No. of containers..01 ThinPrep Vial Result Comment: The Pap smear is a screening test designed to aid in the detection of premalignant and malignant conditions of the uterine cervix. It is not a diagnostic procedure and should not be used as the sole means of detecting cervical cancer. Both false-positive and false-negative reports do occur. Performed By: #### L 7400.0280 #### [facility] [address] [place], [place], [id number] PERFORM Comment Normal . [facility] Comment on above: Order Comment: Speci men Comment: [id number] Specimen Comment: No. of containers..01 ThinPrep Vial Result Comment: Hattie Charles, Facilitator (ASCP) Performed By: #### L 7400.0280 #### [facility] [address] 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 Care Required: No Is patient in pain?: No Allergies adhesive tape Adverse Reaction (Mild, Verified 08/20/25 10:19) Rash Medications ???Medication ???Instructions ???Recorded ???Confirmed ???Type loratadine 10 mg tablet (Claritin) 10 mg PO DAILY allergies 9 08/20/25 History vitamins 30 30 mg iron-10 1 cap PO DAILY 9 08/20/25 History mg iron-folic acid 1 mg-om3 capsule levonorgestrel 20.4 mcg/24 hr (up 1 device intrauterine ONCE 08/20/25 History to 8 yrs) 52 mg intrauterine device (Liletta) cholecalciferol (vitamin D3) 50 50 mcg PO DAILY 12/24/20 08/20/25 History mcg (2,000 unit) capsule zinc 50 mg tablet 50 mg PO DAILY 12/24/20 08/20/25 H istory Is last menstrual period known: Yes Last Menstrual Period: 08/04/25 Post menopausal: No Patient : No : No Control Method[facility] History delivery delivered Family History Father Cancer liver CVA (cerebral vascular accident) x2 Grandmother Heart disease Grandfather Cancer lung(smoker) Social History Smoking Status: Former smoker alcohol intake: never substance use type: does not use caffeine: Yes what type of physical activity do you participate in: walking seatbelt use: always do you feel safe at home: Yes additional social history: [employer] Patient works at [employer] History 3 Elective abortions Hx Para 3 Spontaneous abortions Hx # Term Pregnancies Ectopic pregnancies Hx # Pregnancies Multiple births # of living children 3 Past Pregnancies Del. Date Name GA/Weeks Outcome Route Bth Weight Gen Labor Lgth Anesthesia Del Locatn Provider FOB Unknown 2006 Chaim 41 live - full term [id number] Female Ramsey Unknown 2011 Jaxsen live - full term 8 lb 11 ounces Male Mason Bond 10/21/19 Blaise 40 live - full term Male none [facility] Encounter for routine gynecological examination Details: LYNN CASIANO is a 35 year old who presents for annual exam. She reports no issues or concerns today; Cordell placed in 2020. Doing well with this. She reports she has a menses/spotting. She is sexually active. No concerns for STDs. Last PAP: 2019; normal/neg History of abnormal PAP: none Last mammogram: 2019-lipoma via ultrasound History of abnormal mammogram: as above Colon cancer screening: none Other preventative health care screenings: PCP: Does not have. Female Reproductive History Last Menstrual Period: 08/04/25 Cycle Length: 21-35 Bleeding Duration: 4 Questions: metrorrhagia: No, sexually active: Yes, dyspareunia: No and PCB: No ROS Const Constitutional: Denies chills, fatigue, fever(s), headache(s), weight gain or weight loss Eyes Eyes: Denies change in vision ENT ENT: Denies dizziness Cardio Card: Denies chest pain, chest pain at rest or palpitations Resp Resp: Denies cough or dyspnea GI GI: Denies abdominal pain, constipation, nausea or vomiting : Denies difficulty voiding, dysuria, hematuria, nipple discharge, pelvic pain, prolapse symptoms, urinary frequency, urinary incontinence, urinary urgency, vaginal discharge, vaginal dryness, vaginal odor or vaginal pruritus Skin Skin/Breast: Denies alopecia, new lesions, rash, breast mass, breast pain, breast skin changes or nipple discharge Neuro Neuro: Denies dizziness Psych Psych: Denies anxiety or depression Endo Endo: Denies cold intolerance, excessive sweating or heat intolerance Exam Const General: cooperative, healthy appearing, comfortable, no acute distress, well groomed and well hydrated Nutritional Appearance: well nourished Orientation: alert, awake and oriented x3 HENMT Head: normal to inspection and normocephalic Ears: hearing grossly normal bilaterally and external ears normal Nose: external nose normal Face and sinus: normal facial exam Eyes General: appearance normal, both eyes and all related structures Neck Neck: normal visual inspection, full ROM and no lymphadenopathy Thyroid: thyroid normal (more content not included)... Normal [facility] CNOVon 03-08-2025 CNOV Office Visit (UCWSTR ) LYNN CASIANO ([id number]) 1990 F Date Time Provider Department 03/08/25 10:45 AM ERICK UGARTE [facility] During your visit today, we recorded the following information about you: Temperature Pulse Respiration Blood pressure 99.9 degrees 92/minute 18/minute 127/85 Weight 112.7 kg Erick Ugarte PA 03/08/2025 10:56 AM Signed [facility] Subjective Lynn Casiano is a 35 year old female. Patient presents with: Head Congestion: Sinus pain and pressure, GRAMAJO, swollen lymph nodes x2 days HPI 35-year-old female presents for sinus pressure, sinus pain, congestion, headache, swollen lymph nodes since yesterday. Patient states yesterday she started feeling sick, today woke up with more sinus pressure, sinus pain and pressure. She states that when she blows her nose she has discolored nasal drainage. She does have a low-grade fever here. No cough. She has not taken anything for symptoms. No other complaint. No past medical history on file. No past surgical history on file. ALLERGIES Seasonal Allergies MEDICATIONS loratadine (CLARITIN) 10 mg tablet Take 10 mg by mouth. No family history on file. Social History Tobacco Use Smoking status: Former Types: Cigarettes Passive exposure: Past Smokeless tobacco: Never Review of Systems Constitutional: Positive for fever. Negative for chills. HENT: Positive for congestion, sinus pressure and sinus pain. Negative for ear pain and sore throat. Respiratory: Negative for cough and shortness of breath. Cardiovascular: Negative for chest pain. Gastrointestinal: Negative for diarrhea and vomiting. Neurological: Positive for headaches. Objective BP 127/85 Pulse 92 Temp 37.7 ?C (99.9 ?F) Resp 18 Wt 112.7 kg (248 lb 7.3 oz) SpO2 100% Physical Exam Vitals and nursing note reviewed. Constitutional: General: She is not in acute distress. Appearance: Normal appearance. She is not toxic-appearing. HENT: Right Ear: Tympanic membrane and ear canal normal. Left Ear: Tympanic membrane and ear canal normal. Nose: Congestion present. Right Sinus: Maxillary sinus tenderness present. Left Sinus: Maxillary sinus tenderness present. Mouth/Throat: Mouth: Mucous membranes are moist. Pharynx: Oropharynx is clear. Eyes: Conjunctiva/sclera: Conjunctivae normal. Cardiovascular: Rate and Rhythm: Normal rate and regular rhythm. Pulmonary: Effort: Pulmonary effort is normal. Breath sounds: Normal breath sounds. No wheezing, rhonchi or rales. Skin: General: Skin is warm and dry. Neurological: Mental Status: She is alert. {ASSESSMENT/PLAN: 1. URI, acute - ICD9: 465.9, ICD10: J06.9 - Discussed viral etiology and rationale for treatment. - Symptomatic treatment with prn analgesia - Supportive care with fluids and rest - The patient may also use OTC decongestants prn. - Declines viral swab Diagnosis and treatment plan were discussed and questions were answered to the patient's satisfaction. Pt acknowledged understanding of concepts and follow up plan. Specific signs and symptoms that would indicate the need for higher level of care were discussed in detail warranting prompt ER evaluation. ALEJANDRA [place] History and Record Review External record(s) reviewed: prior outpatient record. Systemic symptoms present included: Fever Differential Diagnoses - Viral URI is more likely for the following reason(s): suggested by HANDP - Sinusitis is less likely for the following reason(s): Short duration of symptoms Disposition The patient was discharged. OTC Medications were advised: Decongestant, Flonase Procedures Allergies As of Date: 03/08/2025 Noted Allergy Reaction SEASONAL ALLERGIES 01/04/2012 14 - Other: See Comments Date Reviewed: 03/08/2025 Reviewed by: Crystal Gomez MA - Fully Assessed Reason for Visit: Head Congestion [234] Cmt: Sinus pain and pressure, GRAMAJO, swollen lymph nodes x2 days Primary Visit Diagnosis:URI, acute [J06.9] Prescriptions as of 03/08/2025 - loratadine (CLARITIN) 10 mg tablet Take 10 mg by mouth. Problem List As Of Date: 03/08/2025 (None) Letter Text Encounter Status:Closed by ERICK UGARTE on 03/08/25 Normal [facility] CNOVon 05-23-2023 CNOV Office Visit (UCWSTR ) LYNN CASIANO ([id number]) 1990 F Date Time Provider Department 05/23/23 10:15 AM RODGER FRANZ [facility] During your visit today, we recorded the following information about you: Temperature Pulse Respiration Blood pressure 98.9 degrees 104/minute 16/minute 130/68 Weight 112 kg Rodger Franz PA-C 05/23/2023 11:30 AM Signed This note was created using [employer]. Subjective Lynn Casiano is a 33 year old female. HPI Presents with left eye irritation over the past 2 days. She took her contact out on Wednesday and immediately had pain in her eye. She states it was swollen and red and a little blurred. Stopped wearing her contacts after that. She states its gotten a little bit better but today was still little blurry so came in for evaluation. She wears the monthly contacts. No URI symptoms. Review of Systems HENT: Negative. Eyes: Positive for photophobia, pain, redness and visual disturbance. Negative for discharge. Respiratory: Negative. Cardiovascular: Negative. Gastrointestinal: Negative. All other systems reviewed and are negative. No past medical history on file. Current Outpatient Medications Medication Sig Dispense Refill loratadine (CLARITIN) 10 mg tablet Take 10 mg by mouth. erythromycin (ROMYCIN) 5 mg/gram (0.5 %) ophthalmic ointment Use 1 application in the left eye three times daily for 7 days. 1 g 0 No current facility-administered medications for this visit. No past surgical history on file. No family history on file. Objective BP 130/68 Pulse 104 Temp 37.2 ?C (98.9 ?F) Resp 16 Wt 112 kg (247 lb) SpO2 98% Physical Exam Vitals reviewed. Constitutional: Appearance: Normal appearance. HENT: Head: Normocephalic and atraumatic. Eyes: Comments: Patient has small circular defect in the cornea just below the pupil overlying the iris of the left eye. Some injection of the sclera. Some tearing. Consistent with corneal abrasion. Negative Destiny sign. No foreign body visualized. PERRLA and EOMI. Skin: General: Skin is warm and dry. Neurological: Mental Status: She is alert. Assessment and Plan ASSESSMENT/PLAN: 1. Abrasion of left cornea, initial encounter - ICD9: 918.1, ICD10: S05.02XA I stained the eye using fluorescein and use tetracaine for local anesthetic. Was able to visualize a corneal abrasion under black light. We will place her on erythromycin. Recommend follow-up with ophthalmology. Patient agreeable. Rodger Franz PA-C Allergies As of Date: 05/23/2023 (No Known Allergies) Date Reviewed: 05/23/2023 Reviewed by: Paige Rodrigues - Fully Assessed Reason for Visit: Eye Problem [43] Cmt: left eye irritated, painful, red and swollen and light sensitive x 3 days Primary Visit Diagnosis:Abrasion of left cornea, initial encounter [S05.02XA] Order(s):erythromycin (ROMYCIN) 5 mg/gram (0.5 %) ophthalmic ointmentUse 1 application in the left eye three times daily for 7 days.Disp: 1 gRfl: 0 CONSULT TO OPHTHALMOLOGY [9024] Order #: [id number]: 1 FUTURE Prescriptions as of 05/23/2023 - loratadine (CLARITIN) 10 mg tablet Take 10 mg by mouth. - erythromycin (ROMYCIN) 5 mg/gram (0.5 %) ophthalmic ointment Use 1 application in the left eye three times daily for 7 days. Problem List As Of Date: 05/23/2023 (None) Prescriptions ordered this encounter Disp Refills Start End ERYTHROMYCIN 5 MG/GRAM (0.5 %) EYE O* 1 g 0 05/23/2023 05/30/2023 Route: LEFT EYE Sig: Use 1 application in the left eye three times daily for 7 days. Encounter Status:Closed by RODGER FRANZ on 05/23/23 Normal [facility] NOVEL CORONAVIRUS NASOPHARYN GEAL - [facility] SPECIMEN ONLYon 08-14-2020 SARS-COV-2 NOT DETECTED Normal NOT DETECTED [facility] Comment on above: Order Comment: Viral transport media - Collection must be done while wearing N-95 mask, eye protection, gown and gloves. Please label ALL specimens as "2019-nCoV rule out" and deliver by hand. This test was performed using real time PCR and has been approved for the qualitative detection of SARS-CoV-2 nucleic acid. The test has been authorized by the FDA under an emergency use authorization for use by authorized laboratories. Result Comment: Nega tive results do not preclude SARS-CoV-2 infection and should not be used as the sole basis for treatment or other patient management decisions. Optimum specimen types and timing for peak viral levels during infections caused by SARS-CoV-2 has not been determined. The possibility of a false negative result should especially be considered if the patient's recent exposures or clinical presentation suggest that SARS-CoV-2 infection is probable, and diagnostic tests for other causes of illness (e.g., other respiratory illness) are negative. Collection of a new specimen and re-testing may be necessary if the patient is critically ill or clinically deteriorating. Performed By: #### L [id number] #### [facility] (DEFAULT) [address] [place] [address] NOVEL CORONAVIRUS NASOPHARYN GEAL - [facility] SPECIMEN ONLYon 08-07-2020 SARS-COV-2 NOT DETECTED Normal NOT DETECTED [facility] Comment on above: Order Comment: Viral transport media - Collection must be done while wearing N-95 mask, eye protection, gown and gloves. Please label ALL specimens as "2019-nCoV rule out" and deliver by hand. This test was performed using real time PCR and has been approved for the qualitative detection of SARS-CoV-2 nucleic acid. The test has been authorized by the FDA under an emergency use authorization for use by authorized laboratories. Result Comment: Nega tive results do not preclude SARS-CoV-2 infection and should not be used as the sole basis for treatment or other patient management decisions. Optimum specimen types and timing for peak viral levels during infections caused by SARS-CoV-2 has not been determined. The possibility of a false negative result should especially be considered if the patient's recent exposures or clinical presentation suggest that SARS-CoV-2 infection is probable, and diagnostic tests for other causes of illness (e.g., other respiratory illness) are negative. Collection of a new specimen and re-testing may be necessary if the patient is critically ill or clinically deteriorating. Performed By: #### L [id number] #### [facility] ([facility]) [address] [place] [address] Vital Signs Date Time Vital Sign Value Performing Clinician Facility 08-20-2025 10:20-0400 Body height 173.99 cm No Primary Care Physician [facility] [facility] 08-20-2025 10:18-0400 Body mass index (BMI) [Ratio] 37.4 kg/m2 No Primary Care Physician [facility] 08-20-2025 10:180400 Body weight 113.39 kg No Primary Care Physician [facility] 08-20-2025 10:18-0400 Diastolic blood pressure 79 mm[Hg] No Primary Care Physician [facility] 08-20-2025 10:18-0400 Systolic blood pressure 122 mm[Hg] No Primary Care Physician [facility] 04-06-2025 01:00-0400 Body height 177.8 cm [employer] [facility] 01:00-0400 Body mass index (BMI) [Ratio] 35.4 kg/m2 [employer] [place] [employer] 04-06-2025 01:00-0400 Body surface area Derived from formula 2.35 m2 [employer] 04-06-2025 01:00-0400 Body temperature 98 [degF] [employer] [place] [employer] 04-06-2025 01:00-0400 Body weight 112.04 kg [employer] [place] [employer] 04-06-2025 01:00-0400 Diastolic blood pressure 64 mm[Hg] [employer] [place] [facility] 04-06-2025 01:00-0400 Heart rate 84 /min Marii Caseyay [place] [facility] 04-06-2025 01:00-0400 Respiratory rate 16 /min Marii Fieldshaway [place] [facility] 04-06-2025 01:00-0400 SaO2% (BldA) [Mass fraction] 98 % Marii Morse [place] [facility] 04-06-2025 01:00-0400 Systolic blood pressure 106 mm[Hg] Marii Morse [place] [facility] 05-23-2023 10:22-0400 Body temperature 98.91 [degF] Rodger Athy PA-C Work Phone: [facility] 05-23-2023 10:22-0400 Body weight 112.04 kg Rodger Athy PA-C Work Phone: [facility] 05-23-2023 10:22-0400 Diastolic blood pressure 68 mm[Hg] Rodger Athy PA-C Work Phone: [facility] 05-23-2023 10:22-0400 Heart rate 104 /min Rodger Athy PA-C Work Phone: [facility] 05-23-2023 10:22-0400 Respiratory rate 16 /min Rodger Athy PA-C Work Phone: [facility] 05-23-2023 10:22-0400 SaO2% (BldA) [Mass fraction] 98 % Rodger Athy PA-C Work Phone: [facility] 05-23-2023 10:22-0400 Systolic blood pressure 130 mm[Hg] Rodger Athy PA-C Work Phone: [facility] Encounters Encounter Date Encounter Type Care Provider Facility Start: 08-31-2025 ambulatory No Primary Car e Physician Facility:[facility] Start: 08-20-2025 Patient encounter procedure Renea LE -Laboratory Specimen Work Phone: Start: 08-20-2025 ambulatory No Primary Car e Physician Facility:[facility] Start: 08-20-2025 Encounter for gynecological examination (general) (routine) without abnormal findings Renea Dsouza [facility] Start: 08-20-2025 End: 08-20-2025 Patient encounter procedure Renea LE -[facility] @ Start: 08-20-2025 End: 08-20-2025 Patient encounter status Renea LE [facility] Start: 08-20-2025 End: 08-20-2025 ambulatory No Primary Care Physician -[facility] @ Start: 04-06-2025 Adult health examination Alena Morse [place] [facility], [address] Start: 04-06-2025 Marii graham [place] [facility] [address] Start: 03-08-2025 ambulatory Facility:[facility] Start: 05-23-2023 End: 05-23-2023 ambulatory Facility:[facility] Start: 05-23-2023 End: 05-23-2023 Patient encounter procedure Rodger Franz PA-C Work Phone: [facility] Comment on above: Abrasion of left cor arpita, initial encounter (Primary Dx) Procedures Date Procedure Procedure Detail Performing Clinician Start: 04-06-2025 End: 04-06-2025 Hepatitis C screening Marii Morse H/O: section History of delivery No Primary Care Physician Comment on above: previous x 1, p crescencio Plan of Treatment Date Care Activity Detail Author Start: 08-20-2025 Liquid based cervical cytology screening [facility] Start: 04-06-2025 Basic metabolic 2000 panel - Serum or Plasma [facility] ([place] Start: 04-06-2025 Hemoglobin A1c/Hemoglobin.total in Blood [facility] Start: 04-06-2025 Hepatitis C virus IgG Ab [Presence] in Serum or Plasma by Immunoassay [facility] Start: 04-06-2025 HIV 1 and 2 tests - Meaningful Use set [facility] ([place] Start: 04-06-2025 Lipid 1996 panel - Serum or Plasma [facility] ([place] Start: 07-16-2023 Influenza vaccination INFLUENZA (#1) [facility] Start: 11-15-2022 DEPRESSION ASSESSMENT DEPRESSION ASSESSMENT [facility] Start: 2019 HPV TESTING HPV TESTING [facility] Start: 02-09-2008 Urine microalbumin profile DTAP,TDAP,TD (1 - Tdap) [facility] Start: 2007 HEPATITIS C SCREENING HEPATITIS C SCREENING [facility] Start: 2007 HIV SCREENING HIV SCREENING [facility] Start: 1989 COVID-19 VACCINE (#1) COVID-19 VACCINE (#1) [facility] Start: 1989 HEPATITIS B (1 of 3 - 3-dose series) [facility] Appendectomy appendectomy [place] - [facility] section section [place] - [facility] Cytology report of Cervical or vaginal smear or scraping Cyto stain.thin prep [facility] MG Breast - bilatera l Screening [facility] Path report.final Dx Spec [facility] Immunizations Immunization Date Immunization Notes Care Provider Quin pringle 09-13-2019 Influenza virus vaccine No P rimary Care Physician [facility] 07-21-2019 tetanus toxoid, redu enrico diphtheria toxoid, and acellular pertussis vaccine, adsorbed Marii Morse [facility] 09-19-2014 influenza, injectabl e, quadrivalent, preservative free [place]i [place] [facility] 08-10-2011 hepatitis B vaccine, adult dosage Marii Lito [place] [facility] 01-12-2011 hepatitis B vaccine, adult dosage Marii [place] [facility] 12-03-2010 hepatitis B vaccine, adult dosage Marii [place] [facility] 04-20-2006 TD(adult) unspecifie d formulation Marii [place] [facility] 11-23-1991 diphtheria, tetanus toxoids and pertussis vaccine Marii Morse [place] [facility] 03-09-1991 diphtheria, tetanus toxoids and pertussis vaccine Marii Morse [place] [facility] 03-09-1991 haemophilus influenz ae type b vaccine, PRP-T conjugate Marii Lito [place] [facility] 03-09-1991 measles, mumps and rubella virus vaccine Mariidee dee Morse [place] [facility] 03-09-1991 trivalent poliovirus vaccine, live, oral Marii [place] [facility] 1989 diphtheria, tetanus toxoids and pertussis vaccine Mariidee dee [place] [facility] 1989 trivalent poliovirus vaccine, live, oral Marii Lito [place] [facility] 1989 diphtheria, tetanus toxoids and pertussis vaccine Mariidee dee [place] [facility] 1989 trivalent poliovirus vaccine, live, oral Marii [place] [facility] Payers Date Payer Category Payer Self-pay 2024 Unknown [id number] 2023 Private Health Insurance [id number] 2023 Private Health Insurance [employer] A ETNA CHOICE POS II [id number] 2023-Present [phone] [address] [place] [address] POS [id number] Unknown [id number] 62 Unknown [id number] 62 Unknown [id number] Social History Date Type Detail Facility Tobacco smoking status [facility] Tobacco smoking consumption unknown [facility] Start: 1989 Sex Assigned At Not on file [facility] Gender identity Not on file [facility] Tobacco Smoking Status DEIS Never Smoker [place] - [facility] Start: 12-24-2020 Tobacco smoking status DEIS Ex-smoker (finding) [facility] Start: 10-21-2019 Alcohol Alcohol [facility] Start: 1989 Sex Assigned At Female [facility] Medical Equipment Procedure Code Equipment Code Equipment Original Text Equi pment Identifier Dates Procedure Implant ([id number]) Evaluation note 08-20-2025 Note Date & Type Note Facility 08-20-2025 Evaluation note Diagnosis Onset Date Resolution Contraception management acute August 20, 2025 9:18am Encounter for routine gynecological examination noneactive August 20 9:18am [facility] Work Phone: Progress note 08-20-2025 Note Date & Type Note Facility 08-20-2025 Progress note [facility] Evaluation note 04-06-2025 Note Date & Type Note Facility 04-06-2025 Evaluation note Encounter Date Assessment Date Assessment LastModified by Patient presents today for lab noted below ordered by: Procedure explained and patient verbalized understanding of the procedure and labs to be drawn today. Venipuncture performed using aseptic technique in the side of right antecubital. Venipuncture successful on the first attempt without complications. Dressing applied to the site(s) and pressure held. No signs or symptoms of venipuncture complications observed. Lab results sent to [facility] Provider. Patient left ambulatory with no complaints of pain or discomfort voiced. 2 sst 1 lav [email or web address] Not available 04/06/2025 10:28:31 [place] [facility] Progress note 03-08-2025 Note Date & Type Note Facility 03-08-2025 Note HNO ID: [id number] Author: ERICK UGARTE PA Service: ? Author Type: Physician Maintenance Representative Type: Progress Notes Filed: 03/08/2025 10:56 Note Text: [facility] Subjective Lynn Casiano is a 35 year old female. Patient presents with: Head Congestion: Sinus pain and pressure, GRAMAJO, swollen lymph nodes x2 days HPI 35-year-old female presents for sinus pressure, sinus pain, congestion, headache, swollen lymph nodes since yesterday. Patient states yesterday she started feeling sick, today woke up with more sinus pressure, sinus pain and pressure. She states that when she blows her nose she has discolored nasal drainage. She does have a low-grade fever here. No cough. She has not taken anything for symptoms. No other complaint. No past medical history on file. No past surgical history on file. ALLERGIES Seasonal Allergies MEDICATIONS loratadine (CLARITIN) 10 mg tablet Take 10 mg by mouth. No family history on file. Social History Tobacco Use Smoking status: Former Types: Cigarettes Passive exposure: Past Smokeless tobacco: Never Review of Systems Constitutional: Positive for fever. Negative for chills. HENT: Positive for congestion, sinus pressure and sinus pain. Negative for ear pain and sore throat. Respiratory: Negative for cough and shortness of breath. Cardiovascular: Negative for chest pain. Gastrointestinal: Negative for diarrhea and vomiting. Neurological: Positive for headaches. Objective BP 127/85 Pulse 92 Temp 37.7 ?C (99.9 ?F) Resp 18 Wt 112.7 kg (248 lb 7.3 oz) SpO2 100% Physical Exam Vitals and nursing note reviewed. Constitutional: General: She is not in acute distress. Appearance: Normal appearance. She is not toxic-appearing. HENT: Right Ear: Tympanic membrane and ear canal normal. Left Ear: Tympanic membrane and ear canal normal. Nose: Congestion present. Right Sinus: Maxillary sinus tenderness present. Left Sinus: Maxillary sinus tenderness present. Mouth/Throat: Mouth: Mucous membranes are moist. Pharynx: Oropharynx is clear. Eyes: Conjunctiva/sclera: Conjunctivae normal. Cardiovascular: Rate and Rhythm: Normal rate and regular rhythm. Pulmonary: Effort: Pulmonary effort is normal. Breath sounds: Normal breath sounds. No wheezing, rhonchi or rales. Skin: General: Skin is warm and dry. Neurological: Mental Status: She is alert. {ASSESSMENT/PLAN: 1. URI, acute - ICD9: 465.9, ICD10: J06.9 - Discussed viral etiology and rationale for treatment. - Symptomatic treatment with prn analgesia - Supportive care with fluids and rest - The patient may also use OTC decongestants prn. - Declines viral swab Diagnosis and treatment plan were discussed and questions were answered to the patient's satisfaction. Pt acknowledged understanding of concepts and follow up plan. Specific signs and symptoms that would indicate the need for higher level of care were discussed in detail warranting prompt ER evaluation. ALEJANDRA [place] History and Record Review External record(s) reviewed: prior outpatient record. Systemic symptoms present included: Fever Differential Diagnoses - Viral URI is more likely for the following reason(s): suggested by HANDP - Sinusitis is less likely for the following reason(s): Short duration of symptoms Disposition The patient was discharged. OTC Medications were advised: Decongestant, Flonase Procedures [facility] Progress note 05-23-2023 Note Date & Type Note Facility 05-23-2023 Note HNO ID: [id number] Author: Rodger Franz PA-C Service: ? Author Type: Physician Maintenance Representative Type: Progress Notes Filed: 05/23/2023 11:30 AM Note Text: This note was created using [employer]. Subjective Lynn Casiano is a 33 year old female. HPI Presents with left eye irritation over the past 2 days. She took her contact out on Wednesday and immediately had pain in her eye. She states it was swollen and red and a little blurred. Stopped wearing her contacts after that. She states its gotten a little bit better but today was still little blurry so came in for evaluation. She wears the monthly contacts. No URI symptoms. Review of Systems HENT: Negative. Eyes: Positive for photophobia, pain, redness and visual disturbance. Negative for discharge. Respiratory: Negative. Cardiovascular: Negative. Gastrointestinal: Negative. All other systems reviewed and are negative. No past medical history on file. Current Outpatient Medications Medication Sig Dispense Refill loratadine (CLARITIN) 10 mg tablet Take 10 mg by mouth. erythromycin (ROMYCIN) 5 mg/gram (0.5 %) ophthalmic ointment Use 1 application in the left eye three times daily for 7 days. 1 g 0 No current facility-administered medications for this visit. No past surgical history on file. No family history on file. Objective BP 130/68 Pulse 104 Temp 37.2 ?C (98.9 ?F) Resp 16 Wt 112 kg (247 lb) SpO2 98% Physical Exam Vitals reviewed. Constitutional: Appearance: Normal appearance. HENT: Head: Normocephalic and atraumatic. Eyes: Comments: Patient has small circular defect in the cornea just below the pupil overlying the iris of the left eye. Some injection of the sclera. Some tearing. Consistent with corneal abrasion. Negative Destiny sign. No foreign body visualized. PERRLA and EOMI. Skin: General: Skin is warm and dry. Neurological: Mental Status: She is alert. Assessment and Plan ASSESSMENT/PLAN: 1. Abrasion of left cornea, initial encounter - ICD9: 918.1, ICD10: S05.02XA I stained the eye using fluorescein and use tetracaine for local anesthetic. Was able to visualize a corneal abrasion under black light. We will place her on erythromycin. Recommend follow-up with ophthalmology. Patient agreeable. Rodger Franz PA-C [facility] History of Present illness Narrative 05-23-2023 Rodger Franz PA-C - 05/23/2023 11:24 AM EDT Note Date & Type Note Facility 05-23-2023 History of Presen t illness Narrative Images from the original note were not included. This note was created using [employer]. Subjective Lynn Casiano is a 33 year old female. HPI Presents with left eye irritation over the past 2 days. She took her contact out on Wednesday and immediately had pain in her eye. She states it was swollen and red and a little blurred. Stopped wearing her contacts after that. She states its gotten a little bit better but today was still little blurry so came in for evaluation. She wears the monthly contacts. No URI symptoms. Review of Systems HENT: Negative. Eyes: Positive for photophobia, pain, redness and visual disturbance. Negative for discharge. Respiratory: Negative. Cardiovascular: Negative. Gastrointestinal: Negative. All other systems reviewed and are negative. No past medical history on file. Current Outpatient Medications Medication Sig Dispense Refill loratadine (CLARITIN) 10 mg tablet Take 10 mg by mouth. erythromycin (ROMYCIN) 5 mg/gram (0.5 %) ophthalmic ointment Use 1 application in the left eye three times daily for 7 days. 1 g 0 No current facility-administered medications for this visit. No past surgical history on file. No family history on file. Objective BP 130/68 Pulse 104 Temp 37.2 C (98.9 F) Resp 16 Wt 112 kg (247 lb) SpO2 98% Physical Exam Vitals reviewed. Constitutional: Appearance: Normal appearance. HENT: Head: Normocephalic and atraumatic. Eyes: Comments: Patient has small circular defect in the cornea just below the pupil overlying the iris of the left eye. Some injection of the sclera. Some tearing. Consistent with corneal abrasion. Negative Destiny sign. No foreign body visualized. PERRLA and EOMI. Skin: General: Skin is warm and dry. Neurological: Mental Status: She is alert. Assessment and Plan ASSESSMENT/PLAN: 1. Abrasion of left cornea, initial encounter - ICD9: 918.1, ICD10: S05.02XA I stained the eye using fluorescein and use tetracaine for local anesthetic. Was able to visualize a corneal abrasion under black light. We will place her on erythromycin. Recommend follow-up with ophthalmology. Patient agreeable. Rodger Franz PA-C documented in this encounter [facility] Evaluation note Note Date & Type Note Facility Evaluation note Diagnosis Abrasion of left cornea, initial encounter- Primary documented in this encounter [facility] History general Narrative - Reported Note Date & Type Note Facility History general Narrative - Reported No medical history recorded. Gynecological HistoryNo gynecological history recorded. Obstetrics History GPAL:G 0 P 0 0 0 0 [place] [facility] Progress note Note Date & Type Note Facility Progress note Note Date/Time August 20, 2025 10:48am [facility] [address], [address] [place] [address] OFFICE VISIT Date of Service: 08/20/25 MR#: [id number] Acct: [id number] Name: LYNN CASIANO Rep #: [id number] : 1990 Provider: REY Dsouza Age/Sex: 35/F Location: [facility] Status: Signed Intake Vital Signs 12/24/20 11:00 08/20/25 10:18 08/20/25 10:20 Height 5 ft 8.5 in 5 ft 8.5 in 5 ft 8.5 in Weight: 250 lb BMI 37.4 BP 122/79 H Intake Visit Reasons: Annual ([employer]) 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 Care Required: No Is patient in pain?: No Allergies adhesive tape Adverse Reaction (Mild, Verified 08/20/25 10:19) Rash Medications ?Medication ?Instructions ?Recorded ?Confirmed ?Type loratadine 10 mg tablet (Claritin) 10 mg PO DAILY courtney rgies 03/21/19 08/20/25 History vitamins 30 30 mg iron-10 1 cap PO DAILY preg ranjan 03/21/19 08/20/25 History mg iron-folic acid 1 mg-om3 capsule levonorgestrel 20.4 mcg/24 hr (up 1 device intrauterin e ONCE 01/08/20 08/20/25 History to 8 yrs) 52 mg intrauterine device (Liletta) cholecalciferol (vitamin D3) 50 50 mcg PO DAILY 08/20/25 History mcg (2,000 unit) capsule zinc 50 mg tablet 50 mg PO DAILY 12/24/2005/09 History Is last menstrual period known: Yes Last Menstrual Period: 08/04/25 Post menopausal: No Patient : No : No Control Method: liletta [facility] Surgical History delivery delivered Family History Father Cancer liver CVA (cerebral vascular accident) x2 Grandmother Heart disease Grandfather Cancer lung(smoker) Social History Smoking Status: Former smoker alcohol intake: never substance use type: does not use caffeine: Yes what type of physical activity do you participate in: walking seatbelt use: always do you feel safe at home: Yes additional social history: [place] Patient works at [employer] History 3 Elective abortions Hx Para 3 Spontaneous abortions Hx # Term Pregnancies Ectopic pregnancies Hx # Pregnancies Multiple births # of living children 3 Past Pregnancies Del. Date Name GA/Weeks Outcome Route Bth Weight Infant Gen Labor Lgth Anesthesia Del Locatn Provider FOB Unknown 2006 Chaim 41 live - full term [id number] F [facility] Unknown 2011 Jaxsen live - full term 8 lb 11 ounces M trini Bond 10/21/19 Blaise 40 live - full term Male none [facility] Encounter for routine gynecological examination Details: LYNN CASIANO is a 35 year old who presents for annual exam. She reports no issues or concerns today; Cordell placed in 2020. Doing well with this. She reports shehas a menses/spotting. She is sexually active. No concerns for STDs. Last PAP: 2019; normal/neg History of abnormal PAP: none Last mammogram: 2019-lipoma via ultrasound History of abnormal mammogram: as above Colon cancer screening: none Other preventative health care screenings: PCP: Does not have. Female Reproductive History Last Menstrual Period: 08/04/25 Cycle Length: 21-35 Bleeding Duration: 4 Questions: metrorrhagia: No, sexually active: Yes, dyspareunia: No and PCB: No ROS Const Constitutional: Denies chills, fatigue, fever(s), headache(s), weight gain or weight loss Eyes Eyes: Denies change in vision ENT ENT: Denies dizziness Cardio Card: Denies chest pain, chest pain at rest or palpitations Resp Resp: Denies cough or dyspnea GI GI: Denies abdominal pain, constipation, nausea or vomiting : Denies difficulty voiding, dysuria, hematuria, nipple discharge, pelvic pain, prolapse symptoms, urinary frequency, urinary incontinence, urinary urgency, vaginal discharge, vaginal dryness, vaginal odor or vaginal pruritus Skin Skin/Breast: Denies alopecia, new lesions, rash, breast mass, breast pain, breast skin changes or nipple discharge Neuro Neuro: Denies dizziness Psych Psych: Denies anxiety or depression Endo Endo: Denies cold intolerance, excessive sweating or heat intolerance Exam Const General: cooperative, healthy appearing, comfortable, no acute distress, well groomed and well hydrated Nutritional Appearance: well nourished Orientation: alert, awake and oriented x3 HENMT Head: normal to inspection and normocephalic Ears: hearing grossly normal bilaterally and external ears normal Nose: external nose normal Face and sinus: normal facial exam Eyes General: appearance normal, both eyes and all related structures Neck Neck: normal visual inspection, full ROM and no lymphadenopathy Thyroid: thyroid normal Chest Chest palpation & inspection: normal inspection of the chest Breast inspection: normal inspection of the breasts and normal inspection of theaxillae Breast palpation: normal palpation of the breasts, normal palpation of the axillae and no axillary lymphadenopathy Resp Effort & Inspection: normal respiratory effort, able to speak in complete sentences and symmetric chest movement GI Inspection: normal to inspection Palpation: soft and no hepatosplenomegaly General: bladder normal to palpation External Female Exam: normal external appearance and normal appearance of the urethra Urethra: normal appearance of the urethra Speculum Exam - Vagina: normal appearance of the vagina, normal vaginal discharge, no lesions and nontender Speculum Exam - Cervix: normal appearance of the cervix (IUD strings in place), no lesions and no masses Bimanual Exam- Vagina & Uterus: normal bimanual exam, uterine size normal, bladder normal to palpation, normal palpation and non-tender Bimanual Exam- Adnexa, other: normal adnexae, no masses, normal and non-tender Pelvic Support: normal Skin General: no rashes or lesions noted Neuro General: patient alert, patient awake, patient oriented x3 and moves all extremities Psych Appearance: grossly normal Mental Status: mental status grossly normal Affect: normal affect Speech and Movement: speech and movement normal Attitude: cooperative Coding Level of Care Code New Pt Off vis,new,prev 18-39yrs Patient Type New Diagnoses Encounter for routine gynecological examination Z01.419 Contraception management Z30.9 Assessment and Plan Assessment and Plan (1) Encounter for routine gynecological examination: Plan: Breast and pelvic exam complete. PAP due: completed today. Mammogram due: routine screenings age 39; history of lipoma; will obtain screening mammogram this year. If negative okay to wait until age 39. Advised self breast exams monthly. Contraception: IUD--2020. Advised incorporating healthy dietary choices such as increase in lean meats, fruits/vegetables, less processed food/sat fat/trans fats. Increase exercise to 30 minutes per day/5 days a week. This can include both weight bearing exercisesand/or brisk walking. Follow up with PCP for further preventative health screenings. Follow up 1 year for repeat annual elderly caregiver exam. Call office sooner with questions or concerns. (2) Contraception management: Status: Acute Comment: cordell 11/30/19 Orders: Orders [facility] MAMM (CAD)W/NIKKI BILAT Today Z12.39 - Encounter for other screening for malignant neoplasm of breast, Z30.9 - Encounter for contraceptive management, unspecified PAP IG HPV APTIMA 16/18,45 Today Z12.4 - Encounter for screening for malignant neoplasm of cervix 08/20/25 1048 <Electronically signed by Renea SOSAC> Date _ Renea SOSAC Cosigner Signature: Date (if applicable) CC: ~ [facility] Work Phone: Reason for referral (narrative) Note Date & Type Note Facility Reason for referral (narrative) No reason for referral information available [facility] Work Phone: Summary Purpose Family History No Family History Records Found Relationship Description Onset Age of this Age Resolved Age Notes LastModified by Organization Details LastModified Time Paternal Grandmother Coronary atherosclero sis diagno sed with Zarate ry athero sclero sisRel ative: 'Pater nal G M'; [email or web address] Not available 08/20/2024 03:58:08 Notes:*Relative: Paternal Gr andmother*Problem: heart attack 44Relative: 'Paternal G M'; *Relative: Paternal uncle*Problem: , colon cancer *Relative: Father*Problem: , liver cancer *Relative: Unspecified Relation*Problem: Grandma of [place] around 45. Paternal uncle with colon cancer, dad of liver cancer. Relationship Condition Age at Onset Recorded Date/T omar father Malignant neoplasm Unknown Cerebrovascular accident (CVA) Unknown grandmother Cardiac disease Unknown grandfather Malignant neoplasm Unknown Advance Directives No Advanced Directives Records FoundNo Advanced Directives Records FoundNo Advanced Directives Records FoundNo Advanced Directives Records Found Reason for Referral Specialty Diagnoses / Procedures Referred By Yancy neves Referred To Contact Ophthalmology Diagnoses Abrasion of left cornea, initial encounter Procedures CONSULT TO OPHTHALMOLOGY OFFICE/OUTPATIENT [facility] MDM 60-74 MINUTES Rodger Franz, PA-C [address] [place] [address] Referral ID Status Reason Start Date Expiration Date Visits Requested Visits Authorized [id number] Pending Review PCP Requested Referral 05/23/2023 05/22/2024 1 1 Chief Complaint and Reason for Visit Chief Complaint Admit Date Annual ([employer]) August 20, 2025 9: 18am Reason for Visit Admit Date Contraception management August 20 9:18am Encounter for routine gynecological exam ination August 20, 2025 9:18am Additional Source Comments INFORMATION SOURCE (unrecogn ized section and content) DATE CREATED AUTHOR 08/16/2020 [facility] DATE CREATED AUTHOR AUTHOR'S ORGANIZ ATION 05/23/2023 [facility] [place] DATE CREATED AUTHOR AUTHOR'S ORGANIZ ATION 03/09/2025 [facility] [place] DATE CREATED AUTHOR AUTHOR'S ORGANIZ ATION 08/26/2025 [facility] Source Comments (unrecognize d section and content) In the event this informatio n is protected by the Federal Confidentiality of Alcohol and Drug Abuse Patient Records regulations: The Federal rules restrict any use of the information to criminally investigate or prosecute any alcohol or drug abuse patient.[facility] Reason for Visit (unrecogniz ed section and content) Reason Comments Eye Problem left eye irritated, painful, red and swollen and light sensitive x 3 days Care Teams (unrecognized sec tion and content) Team Status: Active Member Role/Relationship Status Dates No Primary Care Physician Primary care physician Activ e Team Status: Inactive Member Role/Relationship Status Dates No Primary Care Physician Primary care physician Activ e Start: August 20, 2025 End: August 20, 2025 No Primary Care Physician Referring Provider Active Start: August 20, 2025 End: August 20, 2025 REY Dunn Attending physician Active Start: August 20, 2025 End: August 20, 2025 Team Status: Active Member Role/Relationship Status Dates No Primary Care Physician Primary care physician Activ e Start: August 20, 2025 REY Dunn Attending physician Active Start: August 20, 2025 REY Dunn Referring Provider Active Start: August 20, 2025 Goals (unrecognized section and content) Type Care Experience patient counseled re garding risks/benefits of trial of labor versus repeat . ACOG and uptodate education given to patient. % likelihood of success per calculatorTOLAC consent form signed: signedLabor Preferences-labor support person: Stevan management options preferred: naturalcut cord/dad catch: yesbreastfeeding: yesPP control planned: IUDdiscussed possible routes of delivery and associated risks: VBACspecial requests: s FOR RECORDS PERTAINING TO PATIENTS WHO ARE OR HAVE BEEN ENROLLED IN A CHEMICAL DEPENDENCY/SUBSTANCEABUSE PROGRAM, SOME INFORMATION MAY BE OMITTED. This clinical summary was aggregated from multiple sources. Caution should be exercised in using it in the provision of clinical care. This summary normalizes information from multiple sources, and as a consequence, information in this document may materially change the coding, format and clinical context of patient data. In addition, data may be omitted in some cases. CLINICAL DECISIONS SHOULD BE BASED ON THE PRIMARY CLINICAL RECORDS. [employer] [facility]. provides no warranty or guarantee of the accuracy or completeness of information in this document.
== END | disposition home or self-care (01) ==
LOC: OPBI 14:54
PROVIDERS: Referring Provider Nurse Practitioner Family; Visit Provider Nurse Practitioner Family
DX: Z12.31 Encounter for screening mammogram for malignant neoplasm of breast (principal); Z30.9 Encounter for contraceptive management, unspecified
CPT/HCPCS: 77063; 77067